=== PATIENT | female | born 1980 | race American Indian/Alaskan Native ===

== ENCOUNTER 2018-01-11 20:47 | Emergency (ER) | payer MEDICAID ==
[2018-01-11] MEDS ORDERED: NORCO 10/325 ONE (20:57)
[2018-01-11] MEDS ORDERED: MORPHINE ONE (21:05)
[2018-01-11] MEDS ORDERED: ZOFRAN ONE (21:06)
[2018-01-11 21:27] VITALS: BP 150/85
[2018-01-11] MEDS ORDERED: MORPHINE IV ONE (21:28)
[2018-01-11] MEDS ORDERED: ZOFRAN IV ONE (21:29)
[2018-01-11] MEDS ORDERED: SUBLIMAZE IV ONE (21:42)
[2018-01-11] MEDS ORDERED: SUBLIMAZE ONE (21:42)
[2018-01-11] MEDS ORDERED: NACL 0.9% 1000 ML 1,000 ML IV ONE (21:42)
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
[2018-01-11] MEDS ORDERED: TORADOL IV ONE (23:02)
== END 2018-01-11 23:15 | disposition home or self-care (01) ==
LOC: ED 20:47
DX: T65.91XA Toxic effect of unspecified substance, accidental (unintentional), initial encounter (principal); T23.431A Corrosion of unspecified degree of multiple right fingers (nail), not including thumb, initial encounter; F17.200 Nicotine dependence, unspecified, uncomplicated; Y93.89 Activity, other specified; Y99.8 Other external cause status; Y92.89 Other specified places as the place of occurrence of the external cause
CPT/HCPCS: 96361; 96374; 96375; 99282; J1885; J2270; J2405; J3010; J7030